=== PATIENT | female | born 1985 | race Caucasian/White ===

== ENCOUNTER → 2024-06-14 | Outpatient (CLI) | payer BC ==
--- NOTE | 2024-06-14 07:26 | MM ---
Reason for Exam: Screening (asymptomatic). Baseline mammogram. Patient History: Menarche at age 11. First Full-Term at age 26. Patient has history of breast feeding. Maternal grandmother had breast cancer, age 60. Last menstrual period: 06/07/2024 Risk Values: Jeana 5 year model risk: 0.6%. NCI Lifetime model risk: 11.1%. Prior Study Comparison: Patient's first Mammogram. Tissue Density: The breasts are heterogeneously dense, which may obscure small masses. Findings: Analyzed By CAD. There is no suspicious group of microcalcifications or new suspicious mass in either breast. Overall Assessment: Negative, BI-RAD 1 Management: Screening Mammogram of both breasts in 1 year. . Patient should continue monthly self-breast exams. A clinical breast exam by your physician is recommended on an annual basis. This exam should not preclude additional follow-up of suspicious palpable abnormalities. Note on Jeana scores and lifetime risk: 1. A Jeana score greater than 3% is considered moderate risk. If this is the case, consider specialist referral to assess eligibility for a risk reducing agent. 2. If overall lifetime risk for the development of breast cancer is 20% or higher, the patient may qualify for future screening with alternating mammogram and breast MRI. [facility], , 06/14/2024 7:23 AM. Electronically signed and approved by: Brayden Singer M.D. Radiolog[facility]
== END | disposition home or self-care (01) ==
LOC: RADMAMWWP 07:00
PROVIDERS: ATTEND Family Medicine
DX: Z12.31 Encounter for screening mammogram for malignant neoplasm of breast (principal); R92.333 Mammographic heterogeneous density, bilateral breasts; Z80.3 Family history of malignant neoplasm of breast
CPT/HCPCS: 77063; 77067